=== PATIENT | male | born 1980 | race African-American/Black ===

== ENCOUNTER 2017-08-14 22:15 | Emergency (ER) | payer MEDICAID, OTHER ==
[~2017-08-14] VITALS: Ht 188 cm; Wt 96.0 kg
[~2017-08-14 22:15] MED LIST: TIVICAY
[2017-08-14 23:46] VITALS: BP 136/69
== END 2017-08-15 02:00 | disposition left against medical advice (07) ==
LOC: ER 22:15
DX: M25.562 Pain in left knee (principal); M25.561 Pain in right knee; I10 Essential (primary) hypertension; F17.210 Nicotine dependence, cigarettes, uncomplicated
CPT/HCPCS: 99281